=== PATIENT | male | born 1985 | race Caucasian/White ===

== ENCOUNTER 2016-08-21 16:44 | Emergency (ER) | payer OTHER ==
[~2016-08-21] VITALS: Ht 182.9 cm; Wt 113.6 kg
[~2016-08-21 16:44] MED LIST: DEPAKOTE ER 50500 MG PO; FLEXERIL 1010 MG/TAB PO; FLEXERIL10 MG PO; FLUOXETINE PO; HEART MED; IMITREX 25MG TA25 MG PO; IMITREX100 MG PO; LORTAB 5/500 501 TAB PO; MINIPRESS 1M1 MG/CAP PO; NAPROSYN500 MG PO; NEURONTIN600 MG/TAB PO; NORCO 325 MG-51 TAB PO; NORCO 325 MG-7.1 TAB PO; PAMELOR 10MG10 MG PO; PAMELOR50 MG PO; TOPAMAX50 MG PO; ULTRAM 50MG TAB50 MG; XANAX 1MG1 MG PO; XANAX0.5 MG PO; ZANTAC; ZITHROMAX Z PA250 MG PO; ZOFRAN8 MG PO; ZOLOFT 100MG100 MG PO; ZOLOFT100 MG PO; ZOLOFT50 MG PO
[2016-08-21 16:48] VITALS: TEMP 98.5
[2016-08-21 18:41] VITALS: BP 139/85; PULSE 79
== END 2016-08-21 18:58 | disposition home or self-care (01) ==
LOC: COL.ER 16:44
DX: G43.909 Migraine, unspecified, not intractable, without status migrainosus (principal)
CPT/HCPCS: J1200; J1885; J2765; J7030

== ENCOUNTER 2016-10-11 18:08 | Emergency (ER) | payer OTHER ==
[~2016-10-11] VITALS: Ht 182.9 cm; Wt 118.2 kg
[2016-10-11 18:11] VITALS: BP 155/106; PULSE 81; TEMP 97.3
[2016-10-11] MEDS ORDERED: PAMELOR 10MG10 MG PO (18:17)
[2016-10-11] MEDS ORDERED: ZYRTEC 10MG10 MG PO (18:18)
[2016-10-11] MEDS ORDERED: NAPROSYN500 MG PO (18:18)
[2016-10-11] MEDS ORDERED: ZANAFLEX 4MG TAB4 MG PO (18:19)
[2016-10-11 18:57] LABS: BASO % 0.5 % (0.0-2.0); EOS # 0.1 (0.0-0.7); EOS % 1.3 % (0-4.0); GRAN # 3.4 (1.4-6.5); GRAN % 61.5 % (42.2-75.2); HEMATOCRIT 40.1 % (42.0-52.0); HEMOGLOBIN 13.5 g/dl (13.5-18.0); LYMPH # 1.5 (1.2-3.4); LYMPH % 27.4 % (20.0-51.0); MEAN CELL VOLUME 89 fl (80.0-100.0); MEAN CORPUSCULAR HEMOGLOBIN 30 pg (27.0-31.0); MEAN CORPUSCULAR HGB CONC 34 g/dl (33.0-37.0); MEAN PLATELET VOLUME 9.9 fl (7.4-10.4); MONO # 0.5 (0.1-0.6); MONO % 8.8 % (1.7-9.3); PLATELET COUNT 166 K/mm3 (130-400); RED BLOOD COUNT 4.52 M/mm3 (4.20-5.60); REDCELL DISTRIBUTION WIDTH-CV 12.4 % (11.5-14.5); WHITE BLOOD COUNT 5.5 K/mm3 (4.8-10.8)
[2016-10-11 19:00] LABS: PROTHROMBIN TIME 11.2 SECONDS (9.7-12.8)
[2016-10-11 19:01] LABS: ADJUSTED CALCIUM 9.5 mg/dL (8.4-10.2); ALANINE AMINOTRANSFERASE 86 U/L (21-72); ALBUMIN 4.5 gm/dL (3.5-5.0); ALKALINE PHOSPHATASE 104 U/L (50-136); ANION GAP 12 mmol/L (7-16); BILIRUBIN,TOTAL 0.8 mg/dL (0.0-1.0); BLOOD UREA NITROGEN 17 mg/dL (9-20); CALCIUM 9.9 mg/dL (8.4-10.2); CARBON DIOXIDE 28 mmol/L (22-30); CHLORIDE 100 mmol/L (98-107); CREATININE, serum 0.91 mg/dL (0.66-1.25); GLUCOSE 98 mg/dL (74-106); POTASSIUM 4.4 mmol/L (3.4-5.0); SODIUM 140 mmol/L (137-145); TOTAL PROTEIN 7.7 gm/dL (6.4-8.2)
[2016-10-11 19:02] LABS: PARTIAL THROMBOPLASTIN TIME 30.1 SECONDS (26.0-37.0)
[2016-10-11 19:14] LABS: TROPONIN-I < 0.012 ng/mL (0.000-0.034)
== END 2016-10-11 19:41 | disposition home or self-care (01) ==
LOC: COL.ER 18:08
PROVIDERS: Emergency Medicine
DX: R20.2 Paresthesia of skin (principal); I10 Essential (primary) hypertension
CPT/HCPCS: J2765; J3010; J7040

== ENCOUNTER 2017-04-08 18:34 | Emergency (ER) | payer OTHER ==
[~2017-04-08] VITALS: Ht 185.4 cm; Wt 118.2 kg
[~2017-04-08 18:34] MED LIST changes: +ZANAFLEX 4MG TAB4 MG PO; +ZYRTEC 10MG10 MG PO
[2017-04-08 18:48] VITALS: BP 161/86; PULSE 92; TEMP 97.4
== END 2017-04-08 20:15 | disposition home or self-care (01) ==
LOC: COL.ER 18:34
DX: L25.9 Unspecified contact dermatitis, unspecified cause (principal); F43.10 Post-traumatic stress disorder, unspecified; F32.9 Major depressive disorder, single episode, unspecified; F41.9 Anxiety disorder, unspecified; G43.909 Migraine, unspecified, not intractable, without status migrainosus; Z87.891 Personal history of nicotine dependence

== ENCOUNTER 2017-05-19 16:11 | Emergency (ER) | payer OTHER ==
[~2017-05-19] VITALS: Ht 185.4 cm; Wt 120.5 kg
[2017-05-19 16:13] VITALS: BP 136/73; TEMP 98.6
[2017-05-19 17:03] LABS: BASO % 0.4 % (0.0-2.0); EOS # 0.1 (0.0-0.7); EOS % 1.3 % (0-4.0); GRAN # 4.7 (1.4-6.5); GRAN % 65.4 % (42.2-75.2); HEMATOCRIT 40.6 % (42.0-52.0); HEMOGLOBIN 13.8 g/dl (13.5-18.0); LYMPH # 1.7 (1.2-3.4); LYMPH % 23.1 % (20.0-51.0); MEAN CELL VOLUME 88 fl (80.0-100.0); MEAN CORPUSCULAR HEMOGLOBIN 30 pg (27.0-31.0); MEAN CORPUSCULAR HGB CONC 34 g/dl (33.0-37.0); MEAN PLATELET VOLUME 9.8 fl (7.4-10.4); MONO # 0.7 (0.1-0.6); MONO % 9.1 % (1.7-9.3); PLATELET COUNT 184 K/mm3 (130-400); WHITE BLOOD COUNT 7.2 K/mm3 (4.8-10.8)
[2017-05-19 17:16] LABS: ALANINE AMINOTRANSFERASE 116 U/L (21-72); ALBUMIN 4.4 gm/dL (3.5-5.0); ALKALINE PHOSPHATASE 183 U/L (50-136); ANION GAP 11 mmol/L (7-16); BILIRUBIN,TOTAL 0.5 mg/dL (0.0-1.0); BLOOD UREA NITROGEN 19 mg/dL (9-20); C-REACTIVE PROTEIN < 0.5 mg/dL (0.0-0.9); CALCIUM 9.3 mg/dL (8.4-10.2); CARBON DIOXIDE 27 mmol/L (22-30); CHLORIDE 103 mmol/L (98-107); CREATININE, serum 0.87 mg/dL (0.66-1.25); GLUCOSE 114 mg/dL (74-106); POTASSIUM 3.9 mmol/L (3.4-5.0); SODIUM 141 mmol/L (137-145); TOTAL PROTEIN 7.4 gm/dL (6.4-8.2)
[2017-05-19 18:17] VITALS: PULSE 78
== END 2017-05-19 18:17 | disposition home or self-care (01) ==
LOC: COL.ER 16:11
PROVIDERS: Nurse Practitioner
DX: K42.9 Umbilical hernia without obstruction or gangrene (principal); F43.10 Post-traumatic stress disorder, unspecified; G43.909 Migraine, unspecified, not intractable, without status migrainosus; Z98.890 Other specified postprocedural states
CPT/HCPCS: Q9967

== ENCOUNTER 2017-05-24 19:36 | Emergency (ER) | payer OTHER ==
[2017-05-24 19:42] VITALS: TEMP 97.2
[2017-05-24] MEDS ORDERED: INDERAL 10MG10 MG PO (19:45)
[2017-05-24] MEDS ORDERED: PRILOSEC10 MG PO (19:46)
[2017-05-24 21:54] VITALS: BP 139/92; PULSE 77
== END 2017-05-24 21:56 | disposition home or self-care (01) ==
LOC: COL.ER 19:36
DX: G43.909 Migraine, unspecified, not intractable, without status migrainosus (principal)
CPT/HCPCS: J1170; J1200; J1885; J2405; J2550; J7030

== ENCOUNTER 2017-06-20 10:26 | Day surgery (SDC) | payer OTHER ==
[~2017-06-20] VITALS: Ht 190.5 cm; Wt 123.4 kg
[~2017-06-20 10:26] MED LIST changes: +INDERAL 10MG10 MG PO; +PRILOSEC10 MG PO
[2017-06-20 11:11] VITALS: BP 140/84; PULSE 76; TEMP 97.9
[2017-06-20] MEDS ORDERED: PRILOSEC 20MG20 MG PO (11:21)
[2017-06-20] MEDS ORDERED: INDERAL40 MG PO (11:22)
[2017-06-20] MEDS ORDERED: MINIPRESS2 MG PO (11:26)
[2017-06-20] MEDS ORDERED: XANAX 0.5MG0.5 MG PO (11:27)
[2017-06-20] MEDS ORDERED: NEURONTIN400 MG/CAP PO (11:27)
[2017-06-20] MEDS ORDERED: ZANAFLEX 4MG TAB4 MG PO (11:28)
[2017-06-20] MEDS ORDERED: ZYRTEC 10MG10 MG PO (11:28)
[2017-06-20] MEDS ORDERED: FLONASEALLERGY NS (11:30)
[2017-06-20] MEDS ORDERED: AMBIEN 5MG TABLE5 MG PO (11:31)
[2017-06-20 13:24] VITALS: BP 140/78; PULSE 81; TEMP 98
[2017-06-20] MEDS ORDERED: NORCO 325 MG-51 TAB PO (13:27)
[2017-06-20 13:39] VITALS: BP 118/62; PULSE 79
[2017-06-20 13:54] VITALS: BP 131/70; PULSE 76
[2017-06-20 14:09] VITALS: BP 128/61; PULSE 74
[2017-06-20 14:39] VITALS: BP 135/66; PULSE 74
== END 2017-06-20 15:00 | disposition home or self-care (01) ==
LOC: SDCO 10:26
DX: K42.9 Umbilical hernia without obstruction or gangrene (principal); G47.33 Obstructive sleep apnea (adult) (pediatric); G43.909 Migraine, unspecified, not intractable, without status migrainosus; F43.10 Post-traumatic stress disorder, unspecified; F17.220 Nicotine dependence, chewing tobacco, uncomplicated; K21.9 Gastro-esophageal reflux disease without esophagitis
CPT/HCPCS: J0690; J1100; J1885; J2250; J2405; J2704; J3010; J7120

== ENCOUNTER 2017-06-23 21:46 | Emergency (ER) | payer OTHER ==
[~2017-06-23] VITALS: Ht 185.4 cm; Wt 122.7 kg
[~2017-06-23 21:46] MED LIST changes: +AMBIEN 5MG TABLE5 MG PO; +FLONASEALLERGY NS; +INDERAL40 MG PO; +MINIPRESS2 MG PO; +NEURONTIN400 MG/CAP PO; +PRILOSEC 20MG20 MG PO; +XANAX 0.5MG0.5 MG PO
[2017-06-23 21:48] VITALS: BP 137/72; PULSE 85; TEMP 99.4
== END 2017-06-23 22:22 | disposition left against medical advice (07) ==
LOC: COL.ER 21:46
DX: R42 Dizziness and giddiness (principal); R53.81 Other malaise

== ENCOUNTER 2017-09-21 18:26 | Emergency (ER) | payer OTHER ==
[~2017-09-21] VITALS: Ht 185.4 cm; Wt 122.7 kg
[~2017-09-21 18:26] MED LIST changes: +PRIL40 PO; -PRILOSEC 20MG20 MG PO
[2017-09-21 18:32] VITALS: BP 145/87; PULSE 91; TEMP 97
[2017-09-21] MEDS ORDERED: PROVIGIL200 MG PO (18:39)
[2017-09-21] MEDS ORDERED: NORCO 325 MG-51 TAB PO (19:40)
== END 2017-09-21 19:55 | disposition home or self-care (01) ==
LOC: COL.ER 18:26
DX: S30.0XXA Contusion of lower back and pelvis, initial encounter (principal); M54.10 Radiculopathy, site unspecified; F32.9 Major depressive disorder, single episode, unspecified; K21.9 Gastro-esophageal reflux disease without esophagitis; W00.0XXA Fall on same level due to ice and snow, initial encounter; Y92.009 Unspecified place in unspecified non-institutional (private) residence as the place of occurrence of the external cause

== ENCOUNTER 2017-12-15 15:18 | Emergency (ER) | payer OTHER ==
[~2017-12-15] VITALS: Ht 185.4 cm; Wt 122.7 kg
[~2017-12-15 15:18] MED LIST changes: +PROVIGIL200 MG PO
[2017-12-15 15:22] VITALS: BP 134/73; PULSE 89; TEMP 98
[2017-12-15] MEDS ORDERED: DEPAKOTE ER 50500 MG PO (16:27)
== END 2017-12-15 17:55 | disposition home or self-care (01) ==
LOC: COL.ER 15:18
DX: S39.012A Strain of muscle, fascia and tendon of lower back, initial encounter (principal); W17.89XA Other fall from one level to another, initial encounter
CPT/HCPCS: J1100

== ENCOUNTER 2018-03-28 19:28 | Emergency (ER) | payer OTHER ==
[~2018-03-28] VITALS: Ht 185.4 cm; Wt 120.5 kg
[2018-03-28 19:32] VITALS: BP 141/79; TEMP 98.8
[2018-03-28 20:07] VITALS: PULSE 94
== END 2018-03-28 20:07 | disposition home or self-care (01) ==
LOC: COL.ER 19:28
DX: S61.011A Laceration without foreign body of right thumb without damage to nail, initial encounter (principal); Z23 Encounter for immunization; W26.8XXA Contact with other sharp object(s), not elsewhere classified, initial encounter

== ENCOUNTER → 2018-05-21 | Outpatient (CLI) | payer OTHER | LOC: COL.RAD 07:20 | DX: E22.0 Acromegaly and pituitary gigantism (principal) ==

== ENCOUNTER 2018-06-24 07:10 | Emergency (ER) | payer OTHER ==
[~2018-06-24] VITALS: Ht 185.4 cm; Wt 122.7 kg
[2018-06-24 07:16] VITALS: TEMP 97.7
[2018-06-24] MEDS ORDERED: PERCOCET 325 MG1 TA2 PO (09:13)
[2018-06-24 10:23] VITALS: BP 143/94; PULSE 78
== END 2018-06-24 10:23 | disposition home or self-care (01) ==
LOC: COL.ER 07:10
DX: S92.311A Displaced fracture of first metatarsal bone, right foot, initial encounter for closed fracture (principal); S92.321A Displaced fracture of second metatarsal bone, right foot, initial encounter for closed fracture; S92.331A Displaced fracture of third metatarsal bone, right foot, initial encounter for closed fracture; W00.0XXA Fall on same level due to ice and snow, initial encounter; Y92.009 Unspecified place in unspecified non-institutional (private) residence as the place of occurrence of the external cause
CPT/HCPCS: J1170; Q4045

== ENCOUNTER 2019-02-12 | Emergency (ER) | payer OTHER ==
[~2019-02-12] VITALS: Ht 185.4 cm; Wt 122.7 kg
[~2019-02-12] MED LIST changes: +PERCOCET 325 MG1 TA2 PO
[2019-02-12 00:04] VITALS: BP 147/97; TEMP 98.1
[2019-02-12] MEDS ORDERED: DEPAKOTE ER 50500 MG PO (00:18)
[2019-02-12] MEDS ORDERED: SYNALAR CR0.160GM TP (00:19)
[2019-02-12] MEDS ORDERED: [UNRECOGNIZED DRUG - OTHER] (00:20)
[2019-02-12] MEDS ORDERED: FLONASEALLERGY NS (00:20)
[2019-02-12] MEDS ORDERED: GLUCOPHAGE500 MG/TAB PO (00:23)
[2019-02-12] MEDS ORDERED: ZOCOR 10MG10 MG PO (00:29)
[2019-02-12 00:42] LABS: BASO % 0.5 % (0.0-2.0); EOS # 0.1 (0.0-0.7); EOS % 1.3 % (0-4.0); GRAN # 5.6 (1.4-6.5); GRAN % 67.1 % (42.2-75.2); HEMOGLOBIN 13.9 g/dl (13.5-18.0); LYMPH % 23.8 % (20.0-51.0); MEAN CELL VOLUME 86 fl (80.0-100.0); MEAN CORPUSCULAR HEMOGLOBIN 29 pg (27.0-31.0); MEAN CORPUSCULAR HGB CONC 34 g/dl (33.0-37.0); MEAN PLATELET VOLUME 9.8 fl (7.4-10.4); MONO # 0.6 (0.1-0.6); MONO % 6.8 % (1.7-9.3); PLATELET COUNT 204 K/mm3 (130-400); RED BLOOD COUNT 4.78 M/mm3 (4.20-5.60); REDCELL DISTRIBUTION WIDTH-CV 12.5 % (11.5-14.5)
[2019-02-12 00:52] LABS: ALBUMIN 4.3 gm/dL (3.5-5.0); BILIRUBIN,TOTAL 0.5 mg/dL (0.0-1.0); CALCIUM 9.5 mg/dL (8.4-10.2); CREATININE, serum 0.88 (0.66-1.25); POTASSIUM 3.6 mmol/L (3.4-5.0); TOTAL PROTEIN 7.5 gm/dL (6.4-8.2)
[2019-02-12] MEDS ORDERED: COMPAZINE 110 MG/TAB PO (03:18)
[2019-02-12 03:43] VITALS: PULSE 83
== END 2019-02-12 03:43 | disposition home or self-care (01) ==
LOC: COL.ER
PROVIDERS: Emergency Medicine
DX: G43.909 Migraine, unspecified, not intractable, without status migrainosus (principal); I10 Essential (primary) hypertension; F43.10 Post-traumatic stress disorder, unspecified; F17.220 Nicotine dependence, chewing tobacco, uncomplicated
CPT/HCPCS: J0780; J1200; J1630; J1885; J7030

== ENCOUNTER 2019-12-28 18:38 | Emergency (ER) | payer OTHER ==
[~2019-12-28] VITALS: Ht 185.4 cm; Wt 118.2 kg
[~2019-12-28 18:38] MED LIST changes: +COMPAZINE 110 MG/TAB PO; +GLUCOPHAGE500 MG/TAB PO; +SYNALAR CR0.160GM TP; +ZOCOR 10MG10 MG PO; +[UNRECOGNIZED DRUG - OTHER]
[2019-12-28 19:00] VITALS: TEMP 98.3
[2019-12-28 19:35] LABS: BASO % 0.5 % (0.0-2.0); EOS # 0.1 (0.0-0.7); EOS % 1.3 % (0-4.0); GRAN # 4.8 (1.4-6.5); HEMATOCRIT 41.3 % (42.0-52.0); HEMOGLOBIN 14.4 g/dl (13.5-18.0); LYMPH # 2.4 (1.2-3.4); LYMPH % 30.9 % (20.0-51.0); MEAN CELL VOLUME 83 fl (80.0-100.0); MEAN CORPUSCULAR HEMOGLOBIN 29 pg (27.0-31.0); MEAN CORPUSCULAR HGB CONC 35 g/dl (33.0-37.0); MEAN PLATELET VOLUME 10.8 fl (7.4-10.4); MONO # 0.5 (0.1-0.6); PLATELET COUNT 209 K/mm3 (130-400); RED BLOOD COUNT 4.98 M/mm3 (4.20-5.60); REDCELL DISTRIBUTION WIDTH-CV 12.1 % (11.5-14.5)
[2019-12-28 19:44] LABS: ACETONE,SERUM NEGATIVE
[2019-12-28 19:47] LABS: ALANINE AMINOTRANSFERASE 75 U/L (4-49); ALBUMIN 4.6 gm/dL (3.5-5.0); ALKALINE PHOSPHATASE 356 U/L (50-136); ANION GAP 11 mmol/L (7-16); AST,SGOT 34 U/L (15-37); BILIRUBIN,TOTAL 0.7 mg/dL (0.0-1.0); BLOOD UREA NITROGEN 10 mg/dL (9-20); CALCIUM 9.9 mg/dL (8.4-10.2); CARBON DIOXIDE 27 mmol/L (22-30); CHLORIDE 96 mmol/L (98-107); CREATININE, serum 0.65 (0.66-1.25); POTASSIUM 3.7 mmol/L (3.4-5.0); SODIUM 134 mmol/L (137-145); TOTAL PROTEIN 7.9 gm/dL (6.4-8.2)
[2019-12-28 19:50] LABS: GLUCOSE 427 mg/dL (74-106)
[2019-12-28] MEDS ORDERED: GLUCOTROL 5M5 MG/TAB PO (21:29)
[2019-12-28 22:35] VITALS: BP 134/79; PULSE 72
== END 2019-12-28 22:35 | disposition home or self-care (01) ==
LOC: COL.ER 18:38
PROVIDERS: Nurse Practitioner
DX: E11.65 Type 2 diabetes mellitus with hyperglycemia (principal); F41.9 Anxiety disorder, unspecified; F32.9 Major depressive disorder, single episode, unspecified; F43.10 Post-traumatic stress disorder, unspecified; Z79.84 Long term (current) use of oral hypoglycemic drugs; Z79.891 Long term (current) use of opiate analgesic; Z87.891 Personal history of nicotine dependence
CPT/HCPCS: J1815; J7030

== ENCOUNTER 2020-02-19 20:00 | Emergency (ER) | payer OTHER ==
[~2020-02-19] VITALS: Ht 188 cm; Wt 113.6 kg
[~2020-02-19 20:00] MED LIST changes: +GLUCOTROL 5M5 MG/TAB PO
[2020-02-19 20:08] VITALS: TEMP 97.2
[2020-02-19 20:46] LABS: BASO % 0.4 % (0.0-2.0); EOS # 0.2 (0.0-0.7); EOS % 1.9 % (0-4.0); GRAN # 5.6 (1.4-6.5); GRAN % 61.5 % (42.2-75.2); HEMATOCRIT 42.7 % (42.0-52.0); HEMOGLOBIN 14.5 g/dl (13.5-18.0); LYMPH # 2.7 (1.2-3.4); LYMPH % 29.5 % (20.0-51.0); MEAN CELL VOLUME 85 fl (80.0-100.0); MEAN CORPUSCULAR HEMOGLOBIN 29 pg (27.0-31.0); MEAN CORPUSCULAR HGB CONC 34 g/dl (33.0-37.0); MEAN PLATELET VOLUME 10.1 fl (7.4-10.4); MONO # 0.6 (0.1-0.6); MONO % 6.5 % (1.7-9.3); PLATELET COUNT 229 K/mm3 (130-400); RED BLOOD COUNT 5.03 M/mm3 (4.20-5.60); REDCELL DISTRIBUTION WIDTH-CV 12.1 % (11.5-14.5)
[2020-02-19 21:02] LABS: ALANINE AMINOTRANSFERASE 54 U/L (4-49); ALBUMIN 4.5 gm/dL (3.5-5.0); ALKALINE PHOSPHATASE 114 U/L (50-136); ANION GAP 7 mmol/L (7-16); AST,SGOT 42 U/L (15-37); BILIRUBIN,TOTAL 0.7 mg/dL (0.0-1.0); BLOOD UREA NITROGEN 9 mg/dL (9-20); C-REACTIVE PROTEIN 0.9 mg/dL (0.0-0.9); CALCIUM 9.7 mg/dL (8.4-10.2); CARBON DIOXIDE 30 mmol/L (22-30); CHLORIDE 101 mmol/L (98-107); CREATININE, serum 0.77 (0.66-1.25); GLUCOSE 90 mg/dL (74-106); LIPASE 73 U/L (23-300); POTASSIUM 3.7 mmol/L (3.4-5.0); SODIUM 138 mmol/L (137-145); TOTAL PROTEIN 7.8 gm/dL (6.4-8.2)
[2020-02-19 21:20] LABS: ACETONE,SERUM NEGATIVE
[2020-02-19] MEDS ORDERED: ZOFRAN ODT4 MG PO (21:24)
[2020-02-19] MEDS ORDERED: CARAFATE 1GM1 G PO (21:24)
[2020-02-19] MEDS ORDERED: NORCO 325 MG-51 TAB PO (21:24)
[2020-02-19 21:52] VITALS: BP 158/70; PULSE 72
== END 2020-02-19 21:52 | disposition home or self-care (01) ==
LOC: COL.ER 20:00
PROVIDERS: Emergency Medicine
DX: R10.13 Epigastric pain (principal); R11.2 Nausea with vomiting, unspecified; K59.00 Constipation, unspecified; R19.7 Diarrhea, unspecified; E11.9 Type 2 diabetes mellitus without complications; K21.9 Gastro-esophageal reflux disease without esophagitis; F17.220 Nicotine dependence, chewing tobacco, uncomplicated; Z79.84 Long term (current) use of oral hypoglycemic drugs; Z87.19 Personal history of other diseases of the digestive system
CPT/HCPCS: J2405; J2550; J3010; J7030

== ENCOUNTER 2020-03-22 08:01 | Day surgery (SDC) | payer OTHER ==
[~2020-03-22] VITALS: Ht 185.4 cm; Wt 108.9 kg
[~2020-03-22 08:01] MED LIST changes: +CARAFATE 1GM1 G PO; +ZOFRAN ODT4 MG PO
[2020-03-22] MEDS ORDERED: GLUCOPHAGE500 MG/TAB PO (08:25)
[2020-03-22] MEDS ORDERED: SUNOSI150 MG PO (08:26)
[2020-03-22] MEDS ORDERED: OZEMPIC1 MG/0.75 SQ (08:26)
[2020-03-22] MEDS ORDERED: EFFEXOR-XR150 MG PO (08:27)
[2020-03-22] MEDS ORDERED: EMGALITY120 MG/1 M SQ (08:27)
[2020-03-22] MEDS ORDERED: METHYLIN2.5 MG PO (08:27)
[2020-03-22 08:28] VITALS: BP 134/87; PULSE 75; TEMP 97.5
[2020-03-22 10:15] VITALS: BP 127/84; PULSE 83; TEMP 97.1
--- NOTE | 2020-03-22 10:15 | NUR ---
Patient arrives back to [facility] [place] alert, denies pain or nausea. Patient ambulates from cart to chair with standby assist x2, and without any complications. Patient monitor applied, vitals stable. Patient's spouse at bedside.
--- NOTE | 2020-03-22 10:25 | NUR ---
Patient given juice and muffins at this time.
[2020-03-22 10:30] VITALS: BP 125/79; PULSE 77
[2020-03-22 10:45] VITALS: BP 131/83; PULSE 69
--- NOTE | 2020-03-22 10:45 | NUR ---
Patient tolerates juice and muffins without any nausea.
--- NOTE | 2020-03-22 10:55 | NUR ---
Dr Gillespie into see patient to go over procedure results at this time.
--- NOTE | 2020-03-22 11:10 | NUR ---
Dismissal instructions gone over with patient and patient's spouse. Both verbalize understanding and all questions answered.
--- NOTE | 2020-03-22 11:20 | NUR ---
Patient discharged to private vehicle via wheelchair at patient enterance without any complications. Patient and spouse leave thanking staff for services.
== END 2020-03-22 11:20 | disposition home or self-care (01) ==
LOC: SDCO 08:01
DX: K52.9 Noninfective gastroenteritis and colitis, unspecified (principal); K20.9 Esophagitis, unspecified; K29.50 Unspecified chronic gastritis without bleeding; K31.89 Other diseases of stomach and duodenum; K92.1 Melena; K64.4 Residual hemorrhoidal skin tags; Z79.84 Long term (current) use of oral hypoglycemic drugs; E11.9 Type 2 diabetes mellitus without complications; F41.9 Anxiety disorder, unspecified; F43.10 Post-traumatic stress disorder, unspecified; F32.9 Major depressive disorder, single episode, unspecified; Z98.52 Vasectomy status
CPT/HCPCS: J2704; J7030

== ENCOUNTER 2021-01-31 19:54 | Emergency (ER) | payer OTHER ==
[~2021-01-31] VITALS: Ht 185.4 cm; Wt 98.2 kg
[~2021-01-31 19:54] MED LIST changes: +EFFEXOR-XR150 MG PO; +EMGALITY120 MG/1 M SQ; +METHYLIN2.5 MG PO; +OZEMPIC1 MG/0.75 SQ; +SUNOSI150 MG PO
[2021-01-31 20:20] VITALS: BP 116/77; PULSE 105; TEMP 97
== END 2021-01-31 22:07 | disposition left against medical advice (07) ==
LOC: COL.ER 19:54
DX: S99.921A Unspecified injury of right foot, initial encounter (principal); X58.XXXA Exposure to other specified factors, initial encounter; Y93.89 Activity, other specified

== ENCOUNTER 2021-02-11 09:53 | Emergency (ER) | payer OTHER ==
[~2021-02-11] VITALS: Ht 185.4 cm; Wt 118.2 kg
[2021-02-11 10:14] VITALS: TEMP 98.3
[2021-02-11 11:23] LABS: BASO % 0.5 % (0.0-2.0); EOS % 0.5 % (0-4.0); GRAN # 5.5 (1.4-6.5); GRAN % 73.5 % (42.2-75.2); HEMATOCRIT 46.2 % (42.0-52.0); HEMOGLOBIN 15.5 g/dl (13.5-18.0); LYMPH # 1.5 (1.2-3.4); LYMPH % 19.6 % (20.0-51.0); MEAN CELL VOLUME 86 fl (80.0-100.0); MEAN CORPUSCULAR HEMOGLOBIN 29 pg (27.0-31.0); MEAN CORPUSCULAR HGB CONC 34 g/dl (33.0-37.0); MEAN PLATELET VOLUME 10.3 fl (7.4-10.4); MONO # 0.4 (0.1-0.6); MONO % 5.5 % (1.7-9.3); PLATELET COUNT 233 K/mm3 (130-400); RED BLOOD COUNT 5.36 M/mm3 (4.20-5.60); REDCELL DISTRIBUTION WIDTH-CV 12.7 % (11.5-14.5)
[2021-02-11 11:34] LABS: ALBUMIN 4.5 gm/dL (3.5-5.0); BILIRUBIN,TOTAL 0.7 mg/dL (0.0-1.0); CALCIUM 9.9 mg/dL (8.4-10.2); CREATININE, serum 0.7 (0.66-1.25); POTASSIUM 4.3 mmol/L (3.4-5.0); TOTAL PROTEIN 7.9 gm/dL (6.4-8.2)
[2021-02-11 11:44] LABS: TROPONIN-I 0.017 ng/mL (0.000-0.035)
[2021-02-11 14:30] VITALS: BP 130/68; PULSE 80
== END 2021-02-11 14:30 | disposition home or self-care (01) ==
LOC: COL.ER 09:53
PROVIDERS: Nurse Practitioner
DX: R07.89 Other chest pain (principal); F41.9 Anxiety disorder, unspecified; F32.9 Major depressive disorder, single episode, unspecified; G47.419 Narcolepsy without cataplexy; Z87.891 Personal history of nicotine dependence; Z79.899 Other long term (current) drug therapy

== ENCOUNTER 2021-06-19 13:03 | Emergency (ER) | payer OTHER ==
[~2021-06-19] VITALS: Ht 185.4 cm; Wt 115.9 kg
[2021-06-19 13:24] VITALS: TEMP 98.5
[2021-06-19 15:14] VITALS: BP 125/84; PULSE 77
== END 2021-06-19 15:16 | disposition home or self-care (01) ==
LOC: COL.ER 13:03
DX: R07.89 Other chest pain (principal); F43.10 Post-traumatic stress disorder, unspecified; Z79.899 Other long term (current) drug therapy

== ENCOUNTER 2021-07-16 18:36 | Emergency (ER) | payer OTHER ==
[~2021-07-16] VITALS: Ht 182.9 cm; Wt 90.9 kg
[2021-07-16 18:47] VITALS: TEMP 99.5
[2021-07-16 19:33] LABS: BASO % 0.3 % (0.0-2.0); EOS % 0.5 % (0.0-4.0); GRAN # 2.6 K/mm3 (1.4-6.5); GRAN % 69.9 % (42.2-75.2); HEMATOCRIT 44.3 % (42.0-52.0); HEMOGLOBIN 15.1 g/dl (13.5-18.0); LYMPH # 0.8 K/mm3 (1.2-3.4); LYMPH % 21.6 % (20.0-51.0); MEAN CELL VOLUME 86 fl (80.0-100.0); MEAN CORPUSCULAR HEMOGLOBIN 29 pg (27-31); MEAN CORPUSCULAR HGB CONC 34 g/dl (33.0-37.0); MEAN PLATELET VOLUME 10.1 fl (7.4-10.4); MONO # 0.3 K/mm3 (0.1-0.6); MONO % 7.4 % (1.7-9.3); PLATELET COUNT 131 K/mm3 (130-400); RED BLOOD COUNT 5.17 M/mm3 (4.20-5.60); REDCELL DISTRIBUTION WIDTH-CV 12.2 % (11.5-14.5)
[2021-07-16 19:44] LABS: ALANINE AMINOTRANSFERASE 42 U/L (0-55); ALKALINE PHOSPHATASE 94 U/L (40-150); ANION GAP 13 mmol/L (7-16); AST,SGOT 32 U/L (5-34); BILIRUBIN,TOTAL 0.5 mg/dL (0.2-1.2); BLOOD UREA NITROGEN 13 mg/dL (9-21); CALCIUM 8.8 mg/dL (8.4-10.2); CARBON DIOXIDE 25 mmol/L (22-29); CHLORIDE 103 mmol/L (98-107); CREATININE, serum 0.88 mg/dL (0.72-1.25); GLUCOSE 123 mg/dL (70-99); POTASSIUM 3.8 mmol/L (3.5-4.5); SODIUM 141 mmol/L (136-145); TOTAL PROTEIN 7.2 gm/dL (6.2-8.1)
[2021-07-16 19:52] LABS: TROPONIN-I < 0.010 ng/mL (0.00-0.033)
[2021-07-16 20:34] VITALS: BP 145/76; PULSE 80
== END 2021-07-16 20:34 | disposition home or self-care (01) ==
LOC: COL.ER 18:36
PROVIDERS: Emergency Medicine
DX: U07.1 COVID-19 (principal); E11.9 Type 2 diabetes mellitus without complications; F43.10 Post-traumatic stress disorder, unspecified; Z79.899 Other long term (current) drug therapy; Z79.84 Long term (current) use of oral hypoglycemic drugs
CPT/HCPCS: J7030

== ENCOUNTER 2021-07-18 13:36 | Emergency (ER) | payer OTHER ==
[~2021-07-18] VITALS: Ht 185.4 cm; Wt 113.6 kg
[2021-07-18 14:14] VITALS: TEMP 98.3
[2021-07-18 15:06] VITALS: BP 127/78; PULSE 96
== END 2021-07-18 15:11 | disposition home or self-care (01) ==
LOC: COL.ER 13:36
DX: U07.1 COVID-19 (principal)

== ENCOUNTER 2024-03-07 12:27 | Day surgery (SDC) | payer OTHER ==
[~2024-03-07] VITALS: Ht 185.4 cm; Wt 114.2 kg
[~2024-03-07 12:27] MED LIST changes: +LR 1,000 ML IV SCH
[2024-03-07] MEDS ORDERED: Lidocaine PF 2% (20 MG/ML) 5 ML VIAL ONE (12:54)
[2024-03-07] MEDS ORDERED: Glycopyrrolate 0.2 MG/ML 1 ML VIAL ONE ×2 (12:54)
[2024-03-07] MEDS ORDERED: droPERidol 2.5 MG/ML 2 ML VIAL IV PRN (13:15)
[2024-03-07] MEDS ORDERED: Ondansetron 4 MG/2 ML VIAL IV PRN ×2 (13:15→15:00)
[2024-03-07] MEDS ORDERED: fentaNYL 50 MCG/ML 1 ML SYRINGE/VIAL [PACU/SDC ONLY] IV PRN (13:15)
[2024-03-07] MEDS ORDERED: HYDROmorphone 1 MG/1 ML SYRINGE [PACU/SDC ONLY] IV PRN (13:15)
[2024-03-07] MEDS ORDERED: hydrALAZINE 20 MG/ML 1 ML VIAL IV PRN (13:15)
[2024-03-07 14:00] VITALS: BP 124/80; PULSE 80; TEMP 97.7
[2024-03-07 14:55] VITALS: BP 124/78; PULSE 84; TEMP 96.7
[2024-03-07 15:00] VITALS: BP 126/80; PULSE 80
[2024-03-07] MEDS ORDERED: Acetaminophen 325 MG TAB PO PRN (15:00)
[2024-03-07] MEDS ORDERED: Ibuprofen 600 MG TAB PO PRN (15:00)
[2024-03-07 15:15] VITALS: BP 120/76; PULSE 86
--- NOTE | 2024-03-07 16:21 | NUR ---
1455- PT RETURNS FROM OR TO [facility] VIA CART. MONITORS ON AND ALARMS SET. CALL LIGHT WITHIN REACH. REPORT RECEIVED FROM RN. PT ALERT AND ORIENTED. PT REQUESTS FOOD AND DRINK. PT DENIES ANY PAIN OR NAUSEA. 1530- PT TAKNG FOOD AND DRINK WELL. NO COMPLICATIONS NOTED. 1550- DISCHARGE INSTRUCTIONS GIVEN TO PT. ALL QUESTIONS ASKED. 1610- PT TRANSFERRED OUT OF THE HOSPITAL VIA WHEELCHAIR AND ASSIST TO PRIVATE VEHICLE DRIVEN BY .
== END 2024-03-07 16:10 | disposition home or self-care (01) ==
LOC: SDCO 12:27
DX: K64.1 Second degree hemorrhoids (principal); K62.5 Hemorrhage of anus and rectum; K59.09 Other constipation; F17.220 Nicotine dependence, chewing tobacco, uncomplicated
CPT/HCPCS: J2704; J7120